=== PATIENT | male | born 1965 | race Caucasian/White ===

== ENCOUNTER 2023-11-14 04:57 | Emergency (ER) | payer OTHER ==
[~2023-11-14] VITALS: Ht 180.3 cm; Wt 84.0 kg
[2023-11-14 05:01] VITALS: BP 153/64; PULSE 53; RESP 18; TEMP 96.8; O2SAT 97
[2023-11-14] MEDS ORDERED: TRAZ-252 MT (05:35)
[2023-11-14] MEDS: LORAZEPAM 1MG TABLET PO STA (05:37)
== END 2023-11-14 06:17 | disposition home or self-care (01) ==
LOC: ER 04:57
DX: G47.09 Other insomnia (principal); Z98.890 Other specified postprocedural states
CPT/HCPCS: 99283